=== PATIENT | female | born 1980 | race Hispanic/Latino ===

== ENCOUNTER 2019-05-18 | Emergency (ER) | payer SELFPAY ==
[~2019-05-18] MED LIST: IBUPROFEN600 MG PO; IRON325 M1 PO; PRE-NATAL PO
[2019-05-18] MEDS ORDERED: CODEINE/GUAIFEN1 SOL PO (22:33)
[2019-05-18] MEDS ORDERED: AMOXICILLIN500 M2 PO (22:33)
== END 2019-05-18 22:59 | disposition home or self-care (01) | DRG 153 ==
DX: J02.0 Streptococcal pharyngitis (principal)